=== PATIENT | female | born 2000 | race African-American/Black ===

== ENCOUNTER 2021-07-27 22:42 | Emergency (ER) | payer SELFPAY ==
[~2021-07-27] VITALS: Ht 157.5 cm; Wt 77.1 kg
[2021-07-27] MEDS ORDERED: DEXAMETHASONE SOD PHOS 10 MG/1 ML VIAL IM STA (23:50)
[2021-07-27] MEDS ORDERED: CLEOCIN HCL150 MG PO (23:53)
== END 2021-07-27 23:59 | disposition home or self-care (01) ==
LOC: ER 23:18
DX: J03.90 Acute tonsillitis, unspecified (principal)
CPT/HCPCS: 99282